=== PATIENT | male | born 1995 | race American Indian/Alaskan Native ===

== ENCOUNTER 2018-08-16 01:59 | Emergency (ER) | payer SELFPAY ==
[2018-08-16 02:19] VITALS: TEMP 98.2
[2018-08-16] MEDS ORDERED: Aluminum Hydroxide/Magnesium Hydroxide Susp (30 mL) PO STA (03:27)
--- NOTE | 2018-08-16 03:30 | C.PDOC ---
History Of Present Illness 23 year old male was having a bowel movement when he felt a weird sensation in his stomach and his heart began racing prompting him to call 911. Patient had similar episode 2 years ago when he smoked weed, states he had the same feeling in his heart. He also reports a Hx of acid reflux and states both feel similar to the episode he had today. He currently has no pain, now feels like his heart is "jumpy". Time Seen by Provider: 08/16/18 02:00 Chief Complaint (Nursing): Abdominal Pain History Per: Patient History/Exam Limitations: no limitations Onset/Duration Of Symptoms: Hrs Current Symptoms Are (Timing): Better Radiation Of Pain To:: None Exacerbating Factors: None Recent travel outside of the [place]: No Past Medical History Reviewed: Historical Data, Nursing Documentation, Vital Signs Vital Signs: Last Vital Signs Temp 98.2 F 08/16/18 02:13 Pulse 87 08/16/18 02:13 Resp 20 08/16/18 02:13 BP 136/78 08/16/18 02:13 Pulse Ox 100 08/16/18 02:13 Family History: States: Unknown Family Hx - Social History Hx Alcohol Use: No Hx Substance Use: No - Immunization History Hx Tetanus Toxoid Vaccination: No Hx Influenza Vaccination: No Hx Pneumococcal Vaccination: No Review Of Systems Constitutional: Negative for: Fever, Chills Eyes: Negative for: Pain, Redness ENT: Negative for: Mouth Swelling Cardiovascular: Negative for: Chest Pain, Palpitations Respiratory: Negative for: Cough, Shortness of Breath Gastrointestinal: Negative for: Nausea, Vomiting, Diarrhea Genitourinary: Negative for: Dysuria, Hematuria Musculoskeletal: Negative for: Back Pain Skin: Negative for: Rash Neurological: Negative for: Weakness, Numbness, Dizziness Psych: Positive for: Other (admits to being anxious and under added life stressors) Physical Exam - Physical Exam Appears: Well, Non-toxic, No Acute Distress Skin: Normal Color, Warm Head: Atraumatic, Normacephalic Eye(s): bilateral: Normal Inspection, PERRL, EOMI Nose: Normal Oral Mucosa: Moist Neck: Normal ROM, Supple Chest: Symmetrical Cardiovascular: Rhythm Regular Respiratory: Normal Breath Sounds, No Accessory Muscle Use, Other (Normal inspiratory effort) Gastrointestinal/Abdominal: Soft, No Tenderness, No Distention Extremity: Normal ROM (x4) Neurological/Psych: Oriented x3, Normal Speech, Normal Cranial Nerves (Grossly intact) Gait: Steady ED Course And Treatment O2 Sat by Pulse Oximetry: 100 (Room air) Pulse Ox Interpretation: Normal Medical Decision Making Medical Decision Making: This patient appears to have acid reflux which is causing him to have increased anxiety. he denies having pain now and states his anxiety has calmed down as well. Disposition Counseled Patient/Family Regarding: Studies Performed, Diagnosis, Need For Followup, Rx Given - Disposition Disposition: HOME/ ROUTINE Disposition Time: 03:27 Condition: IMPROVED Prescriptions: Aluminum Hydroxide/Magnesium H [Maalox 30 ml] 30 ml PO TID #1 bottle Instructions: Acid Reflux (Gastroesophageal Reflux Disease), Adult (DC), Anxiety, Adult (DC) Forms: [facility] (Sinhala), General Discharge Instructions - Clinical Impression Clinical Impression: Acid reflux, Anxiety - PA / [employer] REP / Resident Statement MD/DO has reviewed & agrees with the documentation as recorded. - Scribe Statement The provider has reviewed the documentation as recorded by the Scribrobbie Washington All medical record entries made by the Preciousibrobbie were at my direction and personally dictated by me. I have reviewed the chart and agree that the record accurately reflects my personal performance of the history, physical exam, medical decision making, and the department course for this patient. I have also personally directed, reviewed, and agree with the discharge instructions and disposition.
[2018-08-16] MEDS ORDERED: Aluminum Hydroxide/Magnesium Hydroxide Susp (30 mL) ONE (03:38)
[2018-08-16 03:50] VITALS: BP 137/73; PULSE 74; RESP 18
[2018-08-16 03:51] VITALS: O2SAT 100
--- NOTE | 2018-08-17 11:00 | CARD ---
APPROVED REPORT Date of service: 08/16/2018 EKG Measurement Heart [id number] <Conclusion> Normal sinus rhythm Minimal voltage criteria for LVH, may be normal variant Nonspecific ST abnormality Abnormal ECG
== END 2018-08-16 03:30 | disposition home or self-care (01) ==
LOC: C.ER 01:59
DX: K21.9 Gastro-esophageal reflux disease without esophagitis (principal); F41.9 Anxiety disorder, unspecified